=== PATIENT | male | born 1955 | race Caucasian/White ===

== ENCOUNTER 2021-01-10 09:37 | Emergency (ER) | payer MEDICARE ==
[2021-01-10] MEDS ORDERED: Sodium Chloride 0.9% 1,000 ML IV ONE ×2 (10:02→11:42)
[2021-01-10] MEDS ORDERED: Sodium Chloride 0.9% 10 ML Syringe FLUSH PRN (10:02)
[2021-01-10] MEDS ORDERED: Metoprolol Tartrate 5 MG/5 ML SDV IVPUSH ONE (10:04)
[2021-01-10] MEDS ORDERED: Adenosine 12 MG/4 ML SDV IVPUSH ONE (10:04)
[2021-01-10] MEDS ORDERED: Metoprolol Tartrate 50 MG Tab PO ONE (10:04)
--- NOTE | 2021-01-10 10:04 | EDM.PDOC ---
ED HPI GENERAL MEDICAL PROBLEM - General Chief Complaint: General Stated Complaint: SHOCKS FROM PACE [employer]ER Time Seen by Provider: 01/10/21 09:50 Source of Information: Reports: Patient History Limitations: Reports: No Limitations - History of Present Illness INITIAL COMMENTS - FREE TEXT/NARRATIVE: patient presented to the ER with a c/o palpitations for 2-3 days - h/o CAD s/p stenting and pacemaker placement +5 yrs. Reports that he has been feeling palpitations for 3 days - and today his pacemaker delivered around 12 shocks. No CP, SOB or dizziness. Denies any symptoms except palpitations. He is on lisinopril and carvedilol. Upon arrival to the ER - his HR is 200+. Onset: Sudden Duration: Day(s): (3) - Related Data Allergies Allergy/AdvReac Type Severity Reaction Status Date / Time acetaminophen [From Vicodin] Allergy Hives Verified 01/10/21 10:38 hydrocodone [From Vicodin] Allergy Hives Verified 01/10/21 10:38 Home Meds: Home Meds Omeprazole Magnesium [Prilosec Otc] 20 mg PO DAILY 01/10/21 [History] RX: Aspirin [Halfprin] 81 mg PO DAILY 01/10/21 [History] RX: Furosemide 20 mg PO DAILY 01/10/21 [History] RX: Simvastatin 40 mg PO DAILY 01/10/21 [History] RX: Tamsulosin [Flomax] 0.4 mg PO DAILY 01/10/21 [History] RX: lisinopriL [Lisinopril] 20 mg PO DAILY 01/10/21 [History] RX: metFORMIN [Glucophage] 500 mg PO BID 01/10/21 [History] carvediloL [Coreg] 25 mg PO BID 01/10/21 [History] ED ROS GENERAL - Review of Systems Review Of Systems: See Below Constitutional: Reports: No Symptoms HEENT: Reports: No Symptoms Respiratory: Reports: No Symptoms Cardiovascular: Reports: Palpitations. Denies: Chest Pain Endocrine: Reports: No Symptoms GI/Abdominal: Reports: No Symptoms Musculoskeletal: Reports: No Symptoms Skin: Reports: No Symptoms Neurological: Reports: No Symptoms ED EXAM, GENERAL - Physical Exam Exam: See Below General Appearance: Alert, WD/WN, No Apparent Distress Eye Exam: Bilateral Eye: EOMI Head: Atraumatic Neck: Normal Inspection Respiratory/Chest: No Respiratory Distress, Lungs Clear Cardiovascular: Tachycardia GI/Abdominal: Normal Bowel Sounds, Soft Extremities: Normal Inspection Neurological: Alert, Oriented #1 Interpretation EKG Date: 01/10/21 Rhythm: Other (SVT) Bison: Normal Comparison: NA - No Prior EKG #2 Interpretation EKG Date: 01/10/21 Time: 12:15 Rhythm: NSR Bison: LAD-Left Bison Deviation P-Wave: Present QRS: LBBB ST-T: Normal QT: Normal Course - Vital Signs Last Recorded V/S: Last Vital Signs Temp 36.4 C 01/10/21 11:32 Pulse 81 01/10/21 13:21 Resp 20 01/10/21 12:48 BP 103/63 01/10/21 13:21 Pulse Ox 97 01/10/21 12:48 - Orders/Labs/Meds Orders: Active Orders 24 hr Category Date Time Status EKG Documentation Completion [RC] ASDIRECTED Care 01/10/21 10:03 Active EKG Documentation Completion [RC] ASDIRECTED Care 01/10/21 10:24 Active Amiodarone In Dextrose,Iso-Osm [Nexterone in Dextrose Med 01/10/21 13:00 Active 360 MG/200 ML] 360 mg in 200 ml IV ASDIRECTED Potassium Phosphates 45 mmole Med 01/10/21 13:23 Active Sodium Chloride 0.9% [Normal Saline] 500 ml IV ONETIME Sodium Chloride 0.9% [Saline Flush] Med 01/10/21 10:02 Active 10 ml FLUSH ASDIRECTED PRN Saline Lock Insert [OM.PC] Routine Oth 01/10/21 10:02 Ordered Medication Orders Amiodarone HCl/Dextrose (Nexterone In Dextrose 360 Mg/200 Ml) 360 mg in 200 mls @ 33.333 mls/hr IV ASDIRECTED MILAGRO; Protocol Potassium Phosphate 45 mmole/ (Sodium Chloride) 515 mls @ 85.556 mls/hr IV ONETIME MILAGRO Last Admin: 01/10/21 13:26 Dose: 85.556 mls/hr Documented by: KLAUS Sodium Chloride (Sodium Chloride 0.9% 10 Ml Syringe) 10 ml FLUSH ASDIRECTED PRN PRN Reason: Keep Vein Open Labs: Laboratory Tests 01/10/21 01/10/21 01/10/21 Range/Units 10:00 10:02 12:12 WBC 7.1 (4.0-11.0) K/uL RBC 4.86 (4.50-6.50) M/uL Hgb 14.7 (13.0-18.0) g/dL Hct 43.7 (40.0-54.0) % MCV 90 (76-96) fL MCH 30.2 (27.0-32.0) pg MCHC 33.6 (31.0-35.0) g/dL RDW 13.7 (11.0-16.0) % Plt Count 206 (150-400) K/uL MPV 10.8 H (6.0-10.0) fL Sodium 139 (136-145) mmol/L Potassium 3.8 (3.5-5.1) mmol/L Chloride 100 (98-107) mmol/L Carbon Dioxide 23.7 (21.0-32.0) mmol/L Anion Gap 19.1 H (5.0-15.0) mmol/L BUN 20 (8-26) mg/dL Creatinine 1.62 H (0.70-1.30) mg/dL Est Cr Clr Drug Dosing 49.90 mL/min Estimated GFR (MDRD) 43 L (>60) MLS/MIN BUN/Creatinine Ratio 12.3 (6-25) Glucose 191 H (74-100) mg/dL Calcium 9.3 (8.5-10.1) mg/dL Phosphorus 2.2 L (2.5-4.9) mg/dL Magnesium 1.9 (1.8-2.4) mg/dL Troponin I 0.176 H* (0.000-0.060) ng/mL SARS-CoV-2 RNA (KOREY) Negative (NEGATIVE) Meds: Medications Generic Name Dose Route Start Last Admin Trade Name Freq PRN Reason Stop Dose Admin Amiodarone HCl/Dextrose 360 mg in 200 mls @ 33.333 mls/hr 01/10/21 13:00 Nexterone In Dextrose 360 Mg/200 Ml IV ASDIRECTED MILAGRO Protocol Potassium Phosphate 45 mmole/ 515 mls @ 85.556 mls/hr 01/10/21 13:23 01/10/21 13:26 Sodium Chloride IV 85.556 mls/hr ONETIME MILAGRO Administration Sodium Chloride 10 ml 01/10/21 10:02 Sodium Chloride 0.9% 10 Ml Syringe FLUSH ASDIRECTED PRN Keep Vein Open Discontinued Medications Generic Name Dose Route Start Last Admin Trade Name Celi PRN Reason Stop Dose Admin Adenosine 6 mg 01/10/21 10:04 01/10/21 09:55 Adenosine 12 Mg/4 Ml Sdv IVPUSH 01/10/21 10:05 6 mg NOW ONE Administration Aspirin 243 mg 01/10/21 12:10 01/10/21 12:12 Aspirin 81 Mg Tab.Chew PO 01/10/21 12:11 243 mg ONETIME ONE Administration Sodium Chloride 1,000 mls @ 999 mls/hr 01/10/21 10:02 01/10/21 10:07 Normal Saline IV 01/10/21 11:02 999 mls/hr .BOLUS ONE Administration Sodium Chloride 1,000 mls @ 999 mls/hr 01/10/21 11:42 01/10/21 11:46 Normal Saline IV 01/10/21 12:42 999 mls/hr .BOLUS ONE Administration Potassium Phosphate 45 mmole/ 265 mls @ 85.556 mls/hr 01/10/21 13:00 Sodium Chloride IV ONETIME MIALGRO Metoprolol Tartrate 5 mg 01/10/21 10:04 01/10/21 09:59 Metoprolol Tartrate 5 Mg/5 Ml Sdv IVPUSH 01/10/21 10:05 5 mg ONETIME ONE Administration Metoprolol Tartrate 50 mg 01/10/21 10:04 01/10/21 10:07 Metoprolol Tartrate 50 Mg Tab PO 01/10/21 10:05 50 mg ONETIME ONE Administration Metoprolol Tartrate Confirm 01/10/21 10:16 01/10/21 10:11 Metoprolol Tartrate 50 Mg Tab Administered 01/10/21 10:17 Not Given Dose 50 mg .ROUTE .STK-MED ONE - Re-Assessments/Exams Free Text/Narrative Re-Assessment/Exam: upon arrival to the ER - was connected to a monitor - IV lines was established stable BP and asymptomatic Initial EKG- showed SVT. HR 230 IV adenosine 6mg - no effect on HR, so IV lopressor 5 mg was given - HR down to 92, BP 117/82 - EKG showed NSR, LBBB and occasional PVCs. labs were ordered - including CBC, bmp, trop, Mag and Phos. IVF fluid was started NS0.9 bolus. ASA 81x3mg. patient remained asymptomatic. 01/10/21 13:03 consulted with the ambulance operations supervisor direct sales professional at [facility] - Dr. Hines - who agreed with the plan - and recommended to start Amiodarone drip. No heparin given patient is on Eliquis. Amiodarone 150mg bolus, then drip - Dr. Hines- ambulance operations supervisor - called back and reports that he won't be able to provide him with the needed service - ablation - due to serious and complex past medical history including cardiomyopathy and V-Tachs. Recommended to transfer him to [facility] where patient had his previous care. 01/10/21 13:30 hypo-phosphatemia was corrected with K-Phosphate Departure - Departure Time of Disposition: 13:45 Disposition: DC/Tfer to [facility] 02 Reason for Transfer *Q: Other (ablation procedure) Condition: Good Clinical Impression: SVT (supraventricular tachycardia), V-tach, Hypophosphatemia Referrals: PCP,None [Primary Care Provider] - Forms: ED Department Discharge Sepsis Event Note (ED) - Focused Exam Vital Signs: Vital Signs Temp Pulse Pulse Resp BP BP Pulse Ox 01/10/21 13:21 81 103/63 01/10/21 12:48 78 20 104/65 97 01/10/21 12:21 90 16 115/74 97 01/10/21 12:12 89 16 113/78 97 01/10/21 11:32 36.4 C 101 H 16 120/56 L 96 01/10/21 11:15 101 H 14 109/67 01/10/21 11:05 105 H 16 128/79 95 01/10/21 10:39 101 H 22 H 113/74 96 01/10/21 10:20 116/77 01/10/21 10:07 100 117/76 01/10/21 10:00 99 131/81 01/10/21 09:59 122 H 165/58 H 01/10/21 09:40 36.6 C 210 H 20 165/58 H 97 - Problem List & Annotations (1) Hypophosphatemia SNOMED Code(s): 2012545 Code(s): E83.39 - OTHER DISORDERS OF PHOSPHORUS METABOLISM Status: Acute Priority: Low Current Visit: Yes (2) SVT (supraventricular tachycardia) SNOMED Code(s): 1517921 Code(s): I47.1 - SUPRAVENTRICULAR TACHYCARDIA Status: Acute Priority: High Current Visit: Yes (3) V-tach SNOMED Code(s): 19402350, 94462548 Code(s): I47.2 - VENTRICULAR TACHYCARDIA Status: Acute Priority: Medium Current Visit: Yes - Problem List Review Problem List Initiated/Reviewed/Updated: Yes - My Orders Last 24 Hours: My Active Orders 01/10/21 10:02 Sodium Chloride 0.9% [Saline Flush] 10 ml FLUSH ASDIRECTED PRN Saline Lock Insert [OM.PC] Routine 01/10/21 10:03 EKG Documentation Completion [RC] ASDIRECTED 01/10/21 10:24 EKG Documentation Completion [RC] ASDIRECTED 01/10/21 13:00 Amiodarone In Dextrose,Iso-Osm [Nexterone in Dextrose 360 MG/200 ML] 360 mg in 200 ml IV ASDIRECTED 01/10/21 13:23 Potassium Phosphates 45 mmole Sodium Chloride 0.9% [Normal Saline] 500 ml IV ONETIME - Assessment/Plan Last 24 Hours: My Active Orders 01/10/21 10:02 Sodium Chloride 0.9% [Saline Flush] 10 ml FLUSH ASDIRECTED PRN Saline Lock Insert [OM.PC] Routine 01/10/21 10:03 EKG Documentation Completion [RC] ASDIRECTED 01/10/21 10:24 EKG Documentation Completion [RC] ASDIRECTED 01/10/21 13:00 Amiodarone In Dextrose,Iso-Osm [Nexterone in Dextrose 360 MG/200 ML] 360 mg in 200 ml IV ASDIRECTED 01/10/21 13:23 Potassium Phosphates 45 mmole Sodium Chloride 0.9% [Normal Saline] 500 ml IV ONETIME Plan: - IVF - PO4 replacement - Amiodarone bolus then drip - Tele bed - vitals monitoring - transfer by air to higher level of care facility with ICU and cath lab tech services. [facility] - accepted by Dr. Lawton - hsoptalisty/ICU
[2021-01-10] MEDS ORDERED: Metoprolol Tartrate 50 MG Tab ONE (10:16)
[2021-01-10] MEDS ORDERED: Aspirin 81 MG Tab.Chew PO ONE (12:10)
--- NOTE | 2021-01-10 12:23 | CR ---
Date of Service: 01/10/21 Clinical Data: palpitations AP CHEST: Comparison is made to a prior exam dated 03/15/11. The cardiac pacer and pacer wires remain unchanged in position. The heart remains enlarged, unchanged. The pulmonary vasculature appears mildly prominent suggesting mild pulmonary venous congestion. The visualized lungs are clear. No pneumothorax. No pleural effusions. [id number] [facility]
[2021-01-10] MEDS ORDERED: Non-Formulary Medication 1 Each IV ONE (12:56)
[2021-01-10] MEDS ORDERED: Potassium Phosphates 45 MMOLE in Sodium Chloride 0.9% 250 ML IV SCH (13:00)
[2021-01-10] MEDS ORDERED: Potassium Phosphates 45 MMOLE in Sodium Chloride 0.9% 500 ML IV SCH (13:23)
[2021-01-10] MEDS ORDERED: LORazepam 2 MG/ML SDV IVPUSH ONE (14:48)
[2021-01-10] MEDS ORDERED: LORazepam 2 MG/ML SDV ONE (15:03)
== END 2021-01-10 16:12 ==
LOC: LB.ED 09:37
DX: I47.1 Supraventricular tachycardia (principal); E83.39 Other disorders of phosphorus metabolism; Z20.822 Contact with and (suspected) exposure to COVID-19; Z88.5 Allergy status to narcotic agent; Z88.8 Allergy status to other drugs, medicaments and biological substances
CPT/HCPCS: 36415; 71045; 80048; 83735; 84100; 84484; 85027; 93005; 96365; 96366; 96375; 99285; 99285-25; A0425; A0429; A9270-GY; J0153; J0282; J2060; J3490; J7030; J7050; U0002